=== PATIENT | male | born 1965 | race Caucasian/White ===

== ENCOUNTER → 2018-02-10 | Outpatient (CLI) | payer BC ==
--- NOTE | 2018-02-10 13:33 | CT ---
EXAMINATION TYPE: CT brain wo con DATE OF EXAM: 02/10/2018 HISTORY: traumatic intracerebral hemorrhage. Headache and vision changes with dizziness, known brain bleed after injury January 16. CT DLP: 1126 mGycm. Automated Exposure Control for Dose Reduction was Utilized. TECHNIQUE: CT scan of the head is performed without contrast. COMPARISON: CT brain January 16, 2018. FINDINGS: There is interval resolution of acute right-sided intracranial hemorrhage. There is no ne w acute intracranial hemorrhage or midline shift. There is diffuse ventricular and sulcal prominence consistent with diffuse age-related cerebral atrophy. There is low-attenuation in the periventricula r white matter consistent with chronic small vessel ischemic change. Comminuted minimally displaced s kull fractures right frontal and temporal region are redemonstrated. Right superior orbital wall frac ture is less well seen on this study versus prior facial CT study. The globes are intact bilaterally on current study. The paranasal sinuses remain clear. IMPRESSION: Interval resolution of acute posttraumatic intracranial predominately subarachnoid hemorr sanjuana. No new acute intracranial hemorrhage or midline shift. Redemonstration of comminuted mildly di splaced right frontal temporal skull fractures.
== END | disposition home or self-care (01) ==
LOC: RADCTMAIN 12:40
PROVIDERS: ATTEND Specialist
DX: S02.19XA Other fracture of base of skull, initial encounter for closed fracture (principal); S02.0XXA Fracture of vault of skull, initial encounter for closed fracture; S06.0X1A Concussion with loss of consciousness of 30 minutes or less, initial encounter
CPT/HCPCS: 70450